=== PATIENT | female | born 1970 | race Caucasian/White ===

== ENCOUNTER 2018-12-16 21:57 | Inpatient (IN) | payer OTHER ==
[2018-12-16] MEDS ORDERED: METOCLOPRAMIDE 10 MG INJ IV (22:00)
[2018-12-16] MEDS ORDERED: BISACODYL (EC) 5 MG TAB PO (22:00)
[2018-12-16] MEDS ORDERED: NACL 0.9% 3 ML SYG IV (22:00)
[2018-12-16] MEDS ORDERED: ACETAMINOPHEN 325 MG TAB PO (22:00)
[2018-12-16] MEDS ORDERED: DOCUSATE SODIUM 100 MG CAP PO (22:00)
[2018-12-16 22:39] LABS: ADD MAN DIFF? NO
[2018-12-16 22:40] LABS: BASOPHILS % 0.3 % (0.0-2.0); EOSINOPHILS % 0.2 % (0.0-7.0); HEMATOCRIT 35.9 % (37.0-47.0); HEMOGLOBIN 11.8 g/dl (12.0-16.0); LYMPHOCYTES # 1.9 10^3/ul (0.8-2.9); MEAN CORPUSCULAR HEMOGLOBIN 31.6 pg (29.0-33.0); MEAN CORPUSCULAR HGB CONC 32.9 g/dl (32.0-37.0); MEAN CORPUSCULAR VOLUME 96.2 fl (82.0-101.0); MEAN PLATELET VOLUME 9.6 fl (7.4-10.4); MONOCYTE # 0.6 10^3/ul (0.3-0.9); MONOCYTES % 6.9 % (0.0-11.0); NEUTROPHIL # 6.7 10^3/ul (1.6-7.5); NEUTROPHILS % 72.2 % (39.0-77.0); PLATELET COUNT 236 10^3/UL (140-415); RED BLOOD COUNT 3.73 10^6/ul (4.20-5.40); RED CELL DISTRIBUTION WIDTH 13.5 % (11.5-14.5)
[2018-12-16 22:40] LABS: WHITE BLOOD COUNT 9.3 10^3/ul (4.8-10.8)
[2018-12-16] MEDS: ONDANSETRON 4 MG INJ IV (22:49)
[2018-12-16 22:57] LABS: ALANINE AMINOTRANSFERASE 22 IU/L (13-69); ALBUMIN/GLOBULIN RATIO 1.42; ALKALINE PHOSPHATASE 43 IU/L (42-121); ANION GAP 5 (5-13); ASPARTATE AMINO TRANSFERASE 22 IU/L (15-46); BILIRUBIN,INDIRECT 1.1 mg/dl (0-1.1); BILIRUBIN,TOTAL 1.1 mg/dl (0.2-1.3); BLOOD UREA NITROGEN 9 mg/dl (7-20); CALCIUM 9.2 mg/dl (8.4-10.2); CARBON DIOXIDE 29 mmol/L (21-31); CHLORIDE 103 mmol/L (97-110); CREATININE 0.65 mg/dl (0.44-1.00); Estimated GFR > 60 mL/min (>60); GLUCOSE 95 mg/dl (70-220); POTASSIUM 3.9 mmol/L (3.5-5.1); SODIUM 137 mmol/L (135-144); TOTAL PROTEIN 6.8 g/dl (6.1-8.1)
[2018-12-16] MEDS: morphine 2 MG INJ IV (23:04)
[2018-12-16] MEDS: PIPER-TAZO 3.375 GM IV (PMX) 100 ML IVPB (23:20)
[2018-12-16] MEDS: SOD CHLORIDE 0.9% 1,000 ML IV (23:22)
[2018-12-16 23:40] LABS: PROTIME 13.3 Sec (11.9-14.9)
[2018-12-16 23:41] LABS: PARTIAL THROMBOPLASTIN TIME 26.7 Sec (23.0-35.0)
[2018-12-17 03:15] LABS: ADD UMIC NO; UR ASCORBIC ACID NEGATIVE (NEGATIVE); UR BILIRUBIN (Dip) NEGATIVE (NEGATIVE); UR BLOOD (Dip) NEGATIVE (NEGATIVE); UR CLARITY CLEAR (CLEAR); UR COLOR YELLOW (YELLOW); UR GLUCOSE (Dip) NEGATIVE (NEGATIVE); UR KETONES (Dip) 2+ mg/dL (NEGATIVE); UR LEUKOCYTE ESTERASE (Dip) NEGATIVE Leu/ul (NEGATIVE); UR NITRITE (Dip) NEGATIVE (NEGATIVE); UR SPECIFIC GRAVITY (Dip) 1.047 (1.003-1.030); UR TOTAL PROTEIN (Dip) NEGATIVE (NEGATIVE); UR UROBILINOGEN (Dip) NEGATIVE (NEGATIVE)
[2018-12-17] MEDS: morphine 2 MG INJ IV ×3 (04:07→13:22)
[2018-12-17 05:02] LABS: ADD MAN DIFF? NO
[2018-12-17 05:08] LABS: BASOPHILS % 0.6 % (0.0-2.0); EOSINOPHILS # 0.1 10^3/ul (0.0-0.5); EOSINOPHILS % 1.3 % (0.0-7.0); HEMATOCRIT 35.1 % (37.0-47.0); HEMOGLOBIN 11.7 g/dl (12.0-16.0); LYMPHOCYTES # 2.2 10^3/ul (0.8-2.9); LYMPHOCYTES % 30.9 % (15.0-51.0); MEAN CORPUSCULAR HEMOGLOBIN 32.2 pg (29.0-33.0); MEAN CORPUSCULAR HGB CONC 33.3 g/dl (32.0-37.0); MEAN CORPUSCULAR VOLUME 96.7 fl (82.0-101.0); MONOCYTE # 0.5 10^3/ul (0.3-0.9); MONOCYTES % 6.7 % (0.0-11.0); NEUTROPHIL # 4.4 10^3/ul (1.6-7.5); NEUTROPHILS % 60.4 % (39.0-77.0); PLATELET COUNT 217 10^3/UL (140-415); RED BLOOD COUNT 3.63 10^6/ul (4.20-5.40); RED CELL DISTRIBUTION WIDTH 13.4 % (11.5-14.5)
[2018-12-17 05:08] LABS: WHITE BLOOD COUNT 7.2 10^3/ul (4.8-10.8)
[2018-12-17 05:24] LABS: ALANINE AMINOTRANSFERASE 18 IU/L (13-69); ALBUMIN 3.6 g/dl (3.3-4.9); ALBUMIN/GLOBULIN RATIO 1.44; ALKALINE PHOSPHATASE 37 IU/L (42-121); ANION GAP 6 (5-13); ASPARTATE AMINO TRANSFERASE 19 IU/L (15-46); BILIRUBIN,INDIRECT 1.3 mg/dl (0-1.1); BILIRUBIN,TOTAL 1.3 mg/dl (0.2-1.3); BLOOD UREA NITROGEN 11 mg/dl (7-20); CALCIUM 9.1 mg/dl (8.4-10.2); CARBON DIOXIDE 27 mmol/L (21-31); CHLORIDE 105 mmol/L (97-110); CHOLESTEROL 196 mg/dl (100-200); CREATININE 0.59 mg/dl (0.44-1.00); Estimated GFR > 60 mL/min (>60); GLUCOSE 90 mg/dl (70-220); HDL CHOLESTEROL 94 mg/dl (37-92); LDL CHOLESTEROL,CALCULATED 85 mg/dl; MAGNESIUM 1.8 mg/dl (1.7-2.5); POTASSIUM 3.5 mmol/L (3.5-5.1); SODIUM 138 mmol/L (135-144); TOTAL PROTEIN 6.1 g/dl (6.1-8.1); TRIGLYCERIDES 83 mg/dl (0-149)
[2018-12-17] MEDS: PIPER-TAZO 3.375 GM IV (PMX) 100 ML IVPB ×3 (05:37→18:00)
[2018-12-17 07:01] LABS: HEMOGLOBIN A1C 5.1 % (0-5.9)
[2018-12-17] MEDS: ONDANSETRON 4 MG INJ IV (08:20)
[2018-12-17] MEDS: SOD CHLORIDE 0.9% 1,000 ML IV ×2 (14:09→22:59)
[2018-12-17] MEDS: SOD CHLORIDE 0.9% 500 ML IV (23:11)
[2018-12-18] MEDS: PIPER-TAZO 3.375 GM IV (PMX) 100 ML IVPB ×4 (00:16→17:19)
[2018-12-18] MEDS: SOD CHLORIDE 0.9% 1,000 ML IV (00:16)
[2018-12-18] MEDS: IOHEXOL 14.3 MG(I)/ML (ADULT) BTL PO (00:33)
[2018-12-18] MEDS: ONDANSETRON 4 MG INJ IV ×2 (00:33→12:00)
[2018-12-18] MEDS: IOHEXOL 300MG/ML 150 ML BTL (03:04)
[2018-12-18] MEDS: SOD CHLORIDE 0.9% 100 ML (03:04)
[2018-12-18] MEDS: SOD CHLORIDE 0.9% 500 ML IV ×2 (04:18→07:05)
[2018-12-18 06:16] LABS: ADD MAN DIFF? NO
[2018-12-18] MEDS: MIDODRINE 5 MG TAB PO (06:20)
[2018-12-18 06:24] LABS: BASOPHILS % 0.6 % (0.0-2.0); EOSINOPHILS # 0.1 10^3/ul (0.0-0.5); HEMATOCRIT 32.4 % (37.0-47.0); HEMOGLOBIN 10.3 g/dl (12.0-16.0); LYMPHOCYTES % 32.2 % (15.0-51.0); MEAN CORPUSCULAR HEMOGLOBIN 31.8 pg (29.0-33.0); MEAN CORPUSCULAR HGB CONC 31.8 g/dl (32.0-37.0); MEAN PLATELET VOLUME 10.1 fl (7.4-10.4); MONOCYTE # 0.5 10^3/ul (0.3-0.9); MONOCYTES % 7.6 % (0.0-11.0); NEUTROPHIL # 3.7 10^3/ul (1.6-7.5); NEUTROPHILS % 58.4 % (39.0-77.0); PLATELET COUNT 212 10^3/UL (140-415); RED BLOOD COUNT 3.24 10^6/ul (4.20-5.40)
[2018-12-18 06:24] LABS: WHITE BLOOD COUNT 6.3 10^3/ul (4.8-10.8)
[2018-12-18] MEDS ORDERED: VANCOMYCIN IV PER PHARMACY XX (06:30)
[2018-12-18 07:05] LABS: MAGNESIUM 1.7 mg/dl (1.7-2.5)
[2018-12-18 07:05] LABS: PHOSPHORUS 3.9 mg/dl (2.5-4.9)
[2018-12-18] MEDS: VANCOMYCIN HCL 1.25 GM in SOD CHLORIDE 0.9% 250 ML IVPB (07:30)
[2018-12-18] MEDS: ALBUMIN HUMAN 25% 100 ML IV ×4 (07:30→21:55)
[2018-12-18 07:36] LABS: ALANINE AMINOTRANSFERASE 28 IU/L (13-69); ALBUMIN 3.3 g/dl (3.3-4.9); ALBUMIN/GLOBULIN RATIO 1.22; ALKALINE PHOSPHATASE 33 IU/L (42-121); ANION GAP 12 (5-13); ASPARTATE AMINO TRANSFERASE 20 IU/L (15-46); BILIRUBIN,INDIRECT 0.9 mg/dl (0-1.1); BILIRUBIN,TOTAL 0.9 mg/dl (0.2-1.3); BLOOD UREA NITROGEN 9 mg/dl (7-20); CALCIUM 8.1 mg/dl (8.4-10.2); CARBON DIOXIDE 19 mmol/L (21-31); CHLORIDE 104 mmol/L (97-110); CREATININE 0.59 mg/dl (0.44-1.00); Estimated GFR > 60 mL/min (>60); GLUCOSE 55 mg/dl (70-220); POTASSIUM 4.5 mmol/L (3.5-5.1); SODIUM 135 mmol/L (135-144)
[2018-12-18 07:44] LABS: ADD UMIC NO; UR ASCORBIC ACID NEGATIVE (NEGATIVE); UR BILIRUBIN (Dip) NEGATIVE (NEGATIVE); UR BLOOD (Dip) NEGATIVE (NEGATIVE); UR CLARITY CLEAR (CLEAR); UR COLOR STRAW (YELLOW); UR GLUCOSE (Dip) NEGATIVE (NEGATIVE); UR KETONES (Dip) 2+ mg/dL (NEGATIVE); UR LEUKOCYTE ESTERASE (Dip) NEGATIVE Leu/ul (NEGATIVE); UR NITRITE (Dip) NEGATIVE (NEGATIVE); UR SPECIFIC GRAVITY (Dip) 1.018 (1.003-1.030); UR TOTAL PROTEIN (Dip) NEGATIVE (NEGATIVE); UR UROBILINOGEN (Dip) NEGATIVE (NEGATIVE)
[2018-12-18] MEDS: BUPIVACAINE 0.25%/EPI (SDV) 30 ML INJ (09:02)
[2018-12-18] MEDS ORDERED: MIDAZOLAM 1 MG/ML 2 ML INJ (09:44)
[2018-12-18] MEDS ORDERED: METOCLOPRAMIDE 10 MG INJ IV (10:00)
[2018-12-18] MEDS ORDERED: FENTAnyl 50 MCG/ML VIAL IV (10:00)
[2018-12-18] MEDS ORDERED: HYDROmorphONE 1 MG/5 ML IV SYRINGE IV ×2 (10:00)
[2018-12-18] MEDS ORDERED: ROPIVACAINE 0.5 % 30 ML VIAL (10:00)
[2018-12-18] MEDS ORDERED: DIPHENHYDRAMINE 50 MG INJ IV (10:00)
[2018-12-18] MEDS ORDERED: MEPERIDINE 25 MG INJ IV (10:00)
[2018-12-18] MEDS ORDERED: PROPOFOL 20 ML (10:53)
[2018-12-18] MEDS ORDERED: GLYCOPYRROLATE 0.4 MG INJ (10:53)
[2018-12-18] MEDS ORDERED: NEOSTIGMINE 3 MG/3 ML SYRINGE (10:53)
[2018-12-18] MEDS ORDERED: ONDANSETRON 4 MG INJ (10:53)
[2018-12-18] MEDS ORDERED: LIDOCAINE 2% (SDV) 5 ML INJ (10:53)
[2018-12-18] MEDS ORDERED: ROCURONIUM 50 MG INJ (10:53)
[2018-12-18] MEDS ORDERED: METOCLOPRAMIDE 10 MG INJ (10:53)
[2018-12-18] MEDS ORDERED: ALBUMIN HUMAN 5% 250 ML (11:18)
[2018-12-18] MEDS ORDERED: KETOROLAC 30 MG INJ IV (11:30)
[2018-12-18] MEDS: D5-NS + KCL 20 MEQ 1,000 ML IV ×2 (11:30→21:30)
[2018-12-18] MEDS ORDERED: HYDROmorphONE 0.5 MG/0.5 ML SYG IV (11:30)
[2018-12-18] MEDS ORDERED: ALBUMIN HUMAN 5% 250 ML IV (11:30)
[2018-12-18] MEDS ORDERED: EPHEDrine 25 MG/5 ML SYG IV (11:30)
[2018-12-18] MEDS: ALBUMIN HUMAN 5% 250 ML IV (11:43)
[2018-12-18] MEDS ORDERED: ALBUTEROL 0.083% (NEB) 2.5 MG/3 ML AMP (11:59)
[2018-12-18] MEDS: ALBUTEROL 0.083% (NEB) 2.5 MG/3 ML AMP HHN ×2 (12:12→14:00)
[2018-12-18] MEDS ORDERED: FUROSEMIDE 20 MG INJ (12:18)
[2018-12-18] MEDS ORDERED: RACEPINEPHRINE 2.25%(NEB) 0.5 ML AMP (12:26)
[2018-12-18] MEDS: FUROSEMIDE 20 MG INJ IV ×3 (12:54→14:32)
[2018-12-18 14:11] LABS: B-TYPE NATRIURETIC PEPTIDE 469 PG/ML (0-125)
[2018-12-18] MEDS ORDERED: DEXTROSE 50% 50 ML SYRINGE IV ×2 (15:00)
[2018-12-18] MEDS ORDERED: GLUCOSE GEL 15 GRAM TUBE PO ×2 (15:00)
[2018-12-18] MEDS ORDERED: GLUCOSE GEL 15 GRAM TUBE BUCCAL (15:00)
[2018-12-18] MEDS ORDERED: GLUCAGON 1 MG INJ IM (15:00)
[2018-12-18 16:28] LABS: AADO2 Arterial 587.7 mmHg (7.0-24.0); Allen Test ACCEPTAB; Arterial Base Excess -10.8 mmol/L (-3.0-3); Arterial Blood Gas Oxygen Sat 96.5 mmHG (95.0-98.0); Arterial COHb 0.3 % (0.0-3.0); Arterial HCO3 15.4 mmol/L (22.0-26.0); Arterial MetHb 0.2 % (0.0-1.5); Arterial pCO2 35.4 mmhg (35-45); MODE MASK - NRB; Site Right Radial
[2018-12-18] MEDS: LEVALBUTEROL (NEB) 0.63 MG/3 ML AMP HHN ×2 (17:14→20:30)
[2018-12-18] MEDS: NA BICARBONATE 8.4% 50 ML SYG IV ×2 (17:18→17:59)
[2018-12-18 17:32] LABS: ANION GAP 17 (5-13); BLOOD UREA NITROGEN 10 mg/dl (7-20); CALCIUM 9.7 mg/dl (8.4-10.2); CARBON DIOXIDE 17 mmol/L (21-31); CHLORIDE 105 mmol/L (97-110); CREATININE 0.77 mg/dl (0.44-1.00); Estimated GFR > 60 mL/min (>60); GLUCOSE 128 mg/dl (70-220); MAGNESIUM 1.5 mg/dl (1.7-2.5); POTASSIUM 4.1 mmol/L (3.5-5.1); SODIUM 139 mmol/L (135-144)
[2018-12-18] MEDS: MAGNESIUM SULFATE 2 GM/50 ML 50 ML IVPB (18:45)
[2018-12-18] MEDS: VANCOMYCIN 750 MG (PMX) 250 ML IVPB (20:17)
[2018-12-19] MEDS: PIPER-TAZO 3.375 GM IV (PMX) 100 ML IVPB ×4 (00:06→18:53)
[2018-12-19] MEDS: LEVALBUTEROL (NEB) 0.63 MG/3 ML AMP HHN ×2 (00:42→04:49)
[2018-12-19 01:14] LABS: LACTIC ACID 1.1 mmol/L (0.5-2.0)
[2018-12-19 01:18] LABS: ANION GAP 15 (5-13); BLOOD UREA NITROGEN 8 mg/dl (7-20); CALCIUM 8.7 mg/dl (8.4-10.2); CARBON DIOXIDE 21 mmol/L (21-31); CHLORIDE 106 mmol/L (97-110); CREATININE 0.76 mg/dl (0.44-1.00); Estimated GFR > 60 mL/min (>60); GLUCOSE 90 mg/dl (70-220); MAGNESIUM 1.7 mg/dl (1.7-2.5); SODIUM 142 mmol/L (135-144)
[2018-12-19] MEDS: MIDODRINE 5 MG TAB PO (02:00)
[2018-12-19 05:25] LABS: ADD MAN DIFF? NO
[2018-12-19 05:42] LABS: WHITE BLOOD COUNT 6.6 10^3/ul (4.8-10.8)
[2018-12-19 05:42] LABS: BASOPHILS % 0.2 % (0.0-2.0); HEMATOCRIT 28.9 % (37.0-47.0); HEMOGLOBIN 9.5 g/dl (12.0-16.0); LYMPHOCYTES # 1.1 10^3/ul (0.8-2.9); LYMPHOCYTES % 16.2 % (15.0-51.0); MEAN CORPUSCULAR HEMOGLOBIN 31.8 pg (29.0-33.0); MEAN CORPUSCULAR HGB CONC 32.9 g/dl (32.0-37.0); MEAN CORPUSCULAR VOLUME 96.7 fl (82.0-101.0); MEAN PLATELET VOLUME 10.3 fl (7.4-10.4); MONOCYTE # 0.6 10^3/ul (0.3-0.9); MONOCYTES % 8.5 % (0.0-11.0); NEUTROPHIL # 4.9 10^3/ul (1.6-7.5); NEUTROPHILS % 74.6 % (39.0-77.0); PLATELET COUNT 196 10^3/UL (140-415); RED BLOOD COUNT 2.99 10^6/ul (4.20-5.40); RED CELL DISTRIBUTION WIDTH 13.5 % (11.5-14.5)
[2018-12-19 05:53] LABS: PHOSPHORUS 3.5 mg/dl (2.5-4.9)
[2018-12-19 05:53] LABS: MAGNESIUM 1.9 mg/dl (1.7-2.5)
[2018-12-19 05:55] LABS: ALANINE AMINOTRANSFERASE 74 IU/L (13-69); ALBUMIN 4.1 g/dl (3.3-4.9); ALBUMIN/GLOBULIN RATIO 1.78; ALKALINE PHOSPHATASE 59 IU/L (42-121); ANION GAP 16 (5-13); ASPARTATE AMINO TRANSFERASE 76 IU/L (15-46); BILIRUBIN,INDIRECT 0.7 mg/dl (0-1.1); BILIRUBIN,TOTAL 0.7 mg/dl (0.2-1.3); BLOOD UREA NITROGEN 8 mg/dl (7-20); CALCIUM 8.8 mg/dl (8.4-10.2); CARBON DIOXIDE 19 mmol/L (21-31); CHLORIDE 106 mmol/L (97-110); CREATININE 0.72 mg/dl (0.44-1.00); Estimated GFR > 60 mL/min (>60); GLUCOSE 92 mg/dl (70-220); POTASSIUM 3.7 mmol/L (3.5-5.1); SODIUM 141 mmol/L (135-144); TOTAL PROTEIN 6.4 g/dl (6.1-8.1)
[2018-12-19 06:01] LABS: B-TYPE NATRIURETIC PEPTIDE 6130 PG/ML (0-125)
[2018-12-19] MEDS: VANCOMYCIN 750 MG (PMX) 250 ML IVPB (08:31)
[2018-12-19] MEDS ORDERED: LEVALBUTEROL (NEB) 0.63 MG/3 ML AMP HHN (09:30)
[2018-12-19 11:22] LABS: LACTIC ACID 1.2 mmol/L (0.5-2.0)
[2018-12-19 12:45] LABS: AADO2 Arterial 121.6 mmHg (7.0-24.0); Allen Test ACCEPTAB; Arterial Base Excess -5.4 mmol/L (-3.0-3); Arterial Blood Gas Oxygen Sat 93.5 mmHG (95.0-98.0); Arterial COHb 0.3 % (0.0-3.0); Arterial HCO3 19.8 mmol/L (22.0-26.0); Arterial MetHb 0.2 % (0.0-1.5); Arterial pCO2 37.5 mmhg (35-45); MODE NASAL CANNULA; Site Left Radial
[2018-12-19] MEDS: FUROSEMIDE 20 MG INJ IV ×2 (14:50→21:57)
[2018-12-19] MEDS: ONDANSETRON 4 MG INJ IV (18:50)
[2018-12-19 20:01] LABS: VANCOMYCIN,TROUGH 7.2 ug/ml (10.0-20.0)
[2018-12-19] MEDS: VANCOMYCIN 1 GM 250 ML IVPB (20:11)
[2018-12-20] MEDS: PIPER-TAZO 3.375 GM IV (PMX) 100 ML IVPB ×4 (00:56→18:13)
[2018-12-20] MEDS: FUROSEMIDE 20 MG INJ IV ×2 (05:36→19:26)
[2018-12-20 05:58] LABS: ADD MAN DIFF? NO
[2018-12-20 06:07] LABS: BASOPHILS % 0.5 % (0.0-2.0); EOSINOPHILS # 0.1 10^3/ul (0.0-0.5); EOSINOPHILS % 0.8 % (0.0-7.0); HEMATOCRIT 30.9 % (37.0-47.0); HEMOGLOBIN 10.3 g/dl (12.0-16.0); LYMPHOCYTES # 1.3 10^3/ul (0.8-2.9); LYMPHOCYTES % 20.3 % (15.0-51.0); MEAN CORPUSCULAR HEMOGLOBIN 31.9 pg (29.0-33.0); MEAN CORPUSCULAR HGB CONC 33.3 g/dl (32.0-37.0); MEAN CORPUSCULAR VOLUME 95.7 fl (82.0-101.0); MONOCYTE # 0.7 10^3/ul (0.3-0.9); MONOCYTES % 10.1 % (0.0-11.0); NEUTROPHIL # 4.4 10^3/ul (1.6-7.5); NEUTROPHILS % 68.1 % (39.0-77.0); PLATELET COUNT 207 10^3/UL (140-415); RED BLOOD COUNT 3.23 10^6/ul (4.20-5.40); RED CELL DISTRIBUTION WIDTH 13.3 % (11.5-14.5)
[2018-12-20 06:07] LABS: WHITE BLOOD COUNT 6.4 10^3/ul (4.8-10.8)
[2018-12-20 06:49] LABS: PHOSPHORUS 2.9 mg/dl (2.5-4.9)
[2018-12-20 06:50] LABS: MAGNESIUM 1.9 mg/dl (1.7-2.5)
[2018-12-20 06:57] LABS: ALANINE AMINOTRANSFERASE 53 IU/L (13-69); ALBUMIN 4.3 g/dl (3.3-4.9); ALBUMIN/GLOBULIN RATIO 1.48; ALKALINE PHOSPHATASE 63 IU/L (42-121); ANION GAP 15 (5-13); ASPARTATE AMINO TRANSFERASE 39 IU/L (15-46); BILIRUBIN,INDIRECT 0.7 mg/dl (0-1.1); BILIRUBIN,TOTAL 0.7 mg/dl (0.2-1.3); BLOOD UREA NITROGEN 6 mg/dl (7-20); CALCIUM 9.3 mg/dl (8.4-10.2); CARBON DIOXIDE 25 mmol/L (21-31); CHLORIDE 100 mmol/L (97-110); CREATININE 0.69 mg/dl (0.44-1.00); Estimated GFR > 60 mL/min (>60); GLUCOSE 93 mg/dl (70-220); POTASSIUM 3.1 mmol/L (3.5-5.1); SODIUM 140 mmol/L (135-144); TOTAL PROTEIN 7.2 g/dl (6.1-8.1)
[2018-12-20 07:45] LABS: AADO2 Arterial 74.2 mmHg (7.0-24.0); Allen Test ACCEPTAB; Arterial Base Excess 2.6 mmol/L (-3.0-3); Arterial COHb 0.3 % (0.0-3.0); Arterial Fraction of Oxyhgb 94.3 % (93.0-99.0); Arterial HCO3 26.6 mmol/L (22.0-26.0); Arterial MetHb 0.4 % (0.0-1.5); Arterial pCO2 38.8 mmhg (35-45); MODE NASAL CANNULA; Site Right Radial
[2018-12-20] MEDS: POTASSIUM CHLORIDE (SR) 20 MEQ TAB PO ×2 (08:19→14:32)
[2018-12-20] MEDS: VANCOMYCIN 1 GM 250 ML IVPB (08:19)
[2018-12-20] MEDS: ACETAMINOPHEN 325 MG TAB PO (09:54)
[2018-12-20] MEDS: POTASSIUM CHLORIDE 100 ML IVPB (11:29)
[2018-12-20] MEDS ORDERED: ONDANSETRON 4 MG INJ IV (18:00)
[2018-12-21] MEDS: PIPER-TAZO 3.375 GM IV (PMX) 100 ML IVPB ×5 (00:07→23:45)
[2018-12-21 05:24] LABS: ADD MAN DIFF? NO
[2018-12-21 05:29] LABS: WHITE BLOOD COUNT 5.8 10^3/ul (4.8-10.8)
[2018-12-21 05:29] LABS: BASOPHIL # 0.1 10^3/ul (0.0-0.1); BASOPHILS % 0.9 % (0.0-2.0); EOSINOPHILS # 0.2 10^3/ul (0.0-0.5); EOSINOPHILS % 2.8 % (0.0-7.0); HEMATOCRIT 33.3 % (37.0-47.0); HEMOGLOBIN 11.4 g/dl (12.0-16.0); LYMPHOCYTES # 1.3 10^3/ul (0.8-2.9); LYMPHOCYTES % 23.1 % (15.0-51.0); MEAN CORPUSCULAR HGB CONC 34.2 g/dl (32.0-37.0); MEAN CORPUSCULAR VOLUME 93.5 fl (82.0-101.0); MEAN PLATELET VOLUME 10.1 fl (7.4-10.4); MONOCYTE # 0.7 10^3/ul (0.3-0.9); MONOCYTES % 12.1 % (0.0-11.0); NEUTROPHIL # 3.5 10^3/ul (1.6-7.5); NEUTROPHILS % 60.8 % (39.0-77.0); PLATELET COUNT 244 10^3/UL (140-415); RED BLOOD COUNT 3.56 10^6/ul (4.20-5.40); RED CELL DISTRIBUTION WIDTH 12.9 % (11.5-14.5)
[2018-12-21 06:03] LABS: ANION GAP 12 (5-13); BLOOD UREA NITROGEN 13 mg/dl (7-20); CALCIUM 9.9 mg/dl (8.4-10.2); CARBON DIOXIDE 31 mmol/L (21-31); CHLORIDE 98 mmol/L (97-110); CREATININE 0.85 mg/dl (0.44-1.00); Estimated GFR > 60 mL/min (>60); GLUCOSE 100 mg/dl (70-220); MAGNESIUM 1.7 mg/dl (1.7-2.5); PHOSPHORUS 2.6 mg/dl (2.5-4.9); POTASSIUM 3.3 mmol/L (3.5-5.1); SODIUM 141 mmol/L (135-144)
[2018-12-21] MEDS: FUROSEMIDE 20 MG INJ IV (06:17)
[2018-12-21] MEDS: MAGNESIUM SULFATE 2 GM/50 ML 50 ML IVPB (07:12)
[2018-12-21] MEDS: POTASSIUM CHLORIDE (SR) 20 MEQ TAB PO ×2 (08:07→12:52)
[2018-12-21] MEDS: ACETAMINOPHEN 325 MG TAB PO (13:11)
[2018-12-22] MEDS: PIPER-TAZO 3.375 GM IV (PMX) 100 ML IVPB (06:05)
[2018-12-22 06:11] LABS: ADD MAN DIFF? NO
[2018-12-22 06:15] LABS: WHITE BLOOD COUNT 4.7 10^3/ul (4.8-10.8)
[2018-12-22 06:15] LABS: BASOPHIL # 0.1 10^3/ul (0.0-0.1); BASOPHILS % 1.5 % (0.0-2.0); EOSINOPHILS # 0.3 10^3/ul (0.0-0.5); EOSINOPHILS % 6.4 % (0.0-7.0); HEMATOCRIT 37.7 % (37.0-47.0); HEMOGLOBIN 12.5 g/dl (12.0-16.0); LYMPHOCYTES # 1.3 10^3/ul (0.8-2.9); LYMPHOCYTES % 28.1 % (15.0-51.0); MEAN CORPUSCULAR HEMOGLOBIN 31.3 pg (29.0-33.0); MEAN CORPUSCULAR HGB CONC 33.2 g/dl (32.0-37.0); MEAN CORPUSCULAR VOLUME 94.5 fl (82.0-101.0); MEAN PLATELET VOLUME 10.2 fl (7.4-10.4); MONOCYTE # 0.5 10^3/ul (0.3-0.9); MONOCYTES % 10.3 % (0.0-11.0); NEUTROPHIL # 2.5 10^3/ul (1.6-7.5); NEUTROPHILS % 53.3 % (39.0-77.0); PLATELET COUNT 272 10^3/UL (140-415); RED BLOOD COUNT 3.99 10^6/ul (4.20-5.40); RED CELL DISTRIBUTION WIDTH 13.1 % (11.5-14.5)
[2018-12-22 06:44] LABS: ANION GAP 7 (5-13); BLOOD UREA NITROGEN 18 mg/dl (7-20); CALCIUM 10.1 mg/dl (8.4-10.2); CARBON DIOXIDE 34 mmol/L (21-31); CHLORIDE 99 mmol/L (97-110); Estimated GFR > 60 mL/min (>60); GLUCOSE 103 mg/dl (70-220); INR 1.01; MAGNESIUM 2.3 mg/dl (1.7-2.5); PHOSPHORUS 2.5 mg/dl (2.5-4.9); POTASSIUM 3.7 mmol/L (3.5-5.1); PROTIME 13.4 Sec (11.9-14.9); SODIUM 140 mmol/L (135-144)
[2018-12-22] MEDS ORDERED: LIDOCAINE 1% (MDV) 20 ML INJ (11:29)
[2018-12-22] MEDS ORDERED: IODIXANOL LOCM 100 ML BTL (11:29)
[2018-12-22] MEDS ORDERED: HEPARIN 1000 UNITS/ML 10 ML INJ (11:29)
[2018-12-22] MEDS ORDERED: NITROGLYCERIN (IC) 100 MCG/ML INJ (11:30)
[2018-12-22] MEDS ORDERED: FENTAnyl 50 MCG/ML VIAL (11:30)
[2018-12-22] MEDS ORDERED: VERAPAMIL 5 MG INJ (11:30)
[2018-12-22] MEDS ORDERED: MIDAZOLAM 1 MG/ML 2 ML INJ (11:30)
[2018-12-23 08:19] LABS: ADD MAN DIFF? NO
[2018-12-23 08:26] LABS: WHITE BLOOD COUNT 5.8 10^3/ul (4.8-10.8)
[2018-12-23 08:26] LABS: BASOPHIL # 0.1 10^3/ul (0.0-0.1); BASOPHILS % 0.9 % (0.0-2.0); EOSINOPHILS # 0.3 10^3/ul (0.0-0.5); EOSINOPHILS % 5.7 % (0.0-7.0); HEMATOCRIT 36.6 % (37.0-47.0); HEMOGLOBIN 12.1 g/dl (12.0-16.0); LYMPHOCYTES % 33.6 % (15.0-51.0); MEAN CORPUSCULAR HGB CONC 33.1 g/dl (32.0-37.0); MEAN CORPUSCULAR VOLUME 93.8 fl (82.0-101.0); MEAN PLATELET VOLUME 10.3 fl (7.4-10.4); MONOCYTE # 0.6 10^3/ul (0.3-0.9); MONOCYTES % 9.6 % (0.0-11.0); NEUTROPHIL # 2.9 10^3/ul (1.6-7.5); NEUTROPHILS % 49.9 % (39.0-77.0); PLATELET COUNT 314 10^3/UL (140-415); RED CELL DISTRIBUTION WIDTH 13.2 % (11.5-14.5)
[2018-12-23] MEDS: FAMOTIDINE 20 MG TAB PO (08:41)
[2018-12-23 08:52] LABS: ANION GAP 11 (5-13); BLOOD UREA NITROGEN 16 mg/dl (7-20); CALCIUM 9.6 mg/dl (8.4-10.2); CARBON DIOXIDE 30 mmol/L (21-31); CHLORIDE 100 mmol/L (97-110); CREATININE 0.64 mg/dl (0.44-1.00); Estimated GFR > 60 mL/min (>60); GLUCOSE 100 mg/dl (70-220); POTASSIUM 3.4 mmol/L (3.5-5.1); SODIUM 141 mmol/L (135-144)
[2018-12-23] MEDS: POTASSIUM CHLORIDE 20 MEQ POWDER FOR ORAL SOLN PO (10:23)
== END 2018-12-23 18:53 | disposition home or self-care (01) | DRG 341 ==
LOC: MS1 21:57 → TEL 12-22 14:21 → ICU 12-18 14:41 → MS1 12-17 20:40 → 6WM 12-21 20:00
PROC: 0DTJ4ZZ Resection of Appendix, Percutaneous Endoscopic Approach (ICD-10-PCS; principal; 2018-12-18 09:30)
PROC: 4A023N7 Measurement of Cardiac Sampling and Pressure, Left Heart, Percutaneous Approach (ICD-10-PCS; 2018-12-18 09:40)
PROC: B2011ZZ Plain Radiography of Multiple Coronary Arteries using Low Osmolar Contrast (ICD-10-PCS; 2018-12-18 09:40)
PROC: B2051ZZ Plain Radiography of Left Heart using Low Osmolar Contrast (ICD-10-PCS; 2018-12-18 09:40)
DX: K35.80 Unspecified acute appendicitis (principal); J96.01 Acute respiratory failure with hypoxia; I50.21 Acute systolic (congestive) heart failure; J81.0 Acute pulmonary edema; J81.1 Chronic pulmonary edema; E87.2 Acidosis; I42.8 Other cardiomyopathies; I11.0 Hypertensive heart disease with heart failure; I95.9 Hypotension, unspecified; D64.9 Anemia, unspecified; E87.6 Hypokalemia
CPT/HCPCS: 36600; 71045; 74177; 80048; 80053; 80061; 80202; 81003; 82803; 82962; 83036; 83605; 83735; 83880; 84100; 84443; 84703; 85025; 85610; 85730; 87040-91; 87081; 87086; 88304; 93005; 93306; 93458; 94640; 94664